=== PATIENT | female | born 1985 | race Caucasian/White ===

== ENCOUNTER 2018-11-24 23:54 | Emergency (ER) | payer SELFPAY ==
[~2018-11-24] VITALS: Ht 157.5 cm; Wt 80.0 kg
[~2018-11-24 23:54] MED LIST: ACET-141 PO; AMLO-145 PO; HYDR-3980 PO; IBUP-1542 PO; LEVO500T48 PO; NITR-58 PO; SULF1TAB31 PO
[2018-11-25] VITALS: Ht 157.5 cm; Wt 80.0 kg
[2018-11-25] MEDS ORDERED: SODIUM CHLORIDE 0.9% 1L BAG IV* STA (00:35)
[2018-11-25] MEDS ORDERED: ACETAMINOPHEN 500 MG TAB PO STA (00:35)
[2018-11-25] MEDS ORDERED: CEFTRIAXONE 1 GM/50 ML (PMX) 50 ML IVPB ONE (02:30)
[2018-11-25] MEDS ORDERED: POTASSIUM CHLORIDE (SR) 20 MEQ TAB PO ONE (03:09)
[2018-11-25 04:20] VITALS: BP 110/82; PULSE 80; RESP 17
== END 2018-11-25 04:23 | disposition home or self-care (01) ==
LOC: EDBD → E/R 23:54
DX: N12 Tubulo-interstitial nephritis, not specified as acute or chronic (principal); R55 Syncope and collapse
CPT/HCPCS: 36415; 70450; 71045; 72131; 80053; 81001; 81003; 81025; 83605; 85025; 86140; 87040; 87086; 93005; 96374; 99285; J0696; J7030